=== PATIENT | female | born 1945 | race Caucasian/White ===

== ENCOUNTER 2021-09-08 17:01 | Inpatient (IN) | payer MEDICARE ==
[~2021-09-08] VITALS: Ht 172.7 cm; Wt 90.7 kg
[~2021-09-08 17:01] MED LIST: ALDACTONE25 M1 PO; ATENOLOL50 MG PO; ATIVAN0.5 MG PO; B121000 MCG/1 IM; CIPRO500 MG PO; FLEXERIL5 MG PO; KLOR-CON M2020 MEQ PO; LISINOPRIL40 MG PO; NORVASC10 MG PO; PRAVACHOL40 MG PO; PRILOSEC40 MG PO; UNKNOWN HTN MED
[2021-09-08 17:09] VITALS: BP 189/96
[2021-09-08 18:29] LABS: BASO % 0.1 % (0.0-1.0); EOS % 0.1 % (1.0-4.0); HEMATOCRIT 36.4 % (37.0-47.0); LYMPH # 0.9 10*3/uL (1.3-4.4); LYMPH % 8.6 % (27.0-41.0); MEAN CELL VOLUME 85.8 fl (81.0-99.0); MEAN CORPUSCULAR HGB 28.8 pg (27.0-31.0); MEAN CORPUSCULAR HGB CONC 33.5 g/dl (33.0-37.0); MEAN PLATELET VOLUME 10.4 fl (9.6-12.3); MONO # 0.4 10*3/uL (0.1-1.0); MONO % 4.1 % (3.0-9.0); NEUT % 86.5 % (47.0-73.0); PLATELET COUNT AUTOMATED 221 10*3/uL (130-400); RED BLOOD COUNT 4.24 10*6/uL (4.10-5.10); WHITE BLOOD COUNT 10.4 10*3/uL (4.8-10.8)
[2021-09-08 18:43] LABS: ACT PARTIAL THROMBO TIME 25.4 SECONDS (20.0-32.1); ALBUMIN 2.4 gm/dl (3.1-4.5); ALKALINE PHOSPHATASE 130 U/L (45-117); BUN 10 mg/dl (7-24); CHLORIDE 105 mmol/L (98-107); CREATININE 0.75 mg/dL (0.55-1.02); INTERNATIONAL NORM RATIO 1.1 (2.0-3.5); LIPASE 176 U/L (73-393); SGOT/AST 53 IU/L (3-35); SGPT/ALT 34 U/L (12-78); SODIUM 139 mmol/L (136-145); TOTAL PROTEIN 6.7 gm/dL (6.4-8.2)
[2021-09-08 18:46] LABS: TROPONIN I < 0.015 ng/ml (<0.045)
[2021-09-08 19:51] LABS: BILIRUBIN Negative (Negative); BLOOD Negative (Negative); CLARITY Clear (Clear); COLOR Yellow (Yellow); GLUCOSE Negative (Negative); KETONE Negative (Negative); LEUKO ESTERASE Negative (Negative); NITRITE Negative (Negative); PH 6.5 (4.5-8.0); SPECIFIC GRAVITY 1.015 (1.001-1.030); UROBILINOGEN 0.2 E.U./dl (0.0-1.0)
[2021-09-08 20:10] LABS: BACTERIA 1+; EPITHELIAL CELLS 0-2; WBC 0-2 wbc/hpf (0-5); YEAST 1+
[2021-09-08 21:30] VITALS: BP 141/71
[2021-09-08 22:10] VITALS: BP 151/86
[2021-09-08] MEDS ORDERED: MGO400 MG PO (22:57)
[2021-09-08] MEDS ORDERED: DECADRON6 M1 PO (22:58)
[2021-09-08] MEDS ORDERED: KEFLEX 500 MG E2 CAP PO (22:59)
[2021-09-08] MEDS ORDERED: POTASSIUM CHLO20 ME3 PO (23:00)
[2021-09-08] MEDS ORDERED: LORAZEPAM0.5 MG PO (23:01)
[2021-09-08] MEDS ORDERED: METFORMIN HYDR500 MG PO (23:02)
[2021-09-08] MEDS ORDERED: TENORMIN50 MG PO (23:02)
[2021-09-08] MEDS ORDERED: Ondansetron4 MG PO (23:03)
[2021-09-08] MEDS ORDERED: PRAVASTATIN SOD40 MG PO (23:04)
[2021-09-08] MEDS ORDERED: ELIQUIS5 M1 PO (23:04)
[2021-09-09 06:23] LABS: BASO % 0.1 % (0.0-1.0); HEMATOCRIT 34.5 % (37.0-47.0); LYMPH # 0.8 10*3/uL (1.3-4.4); LYMPH % 10.5 % (27.0-41.0); MEAN CORPUSCULAR HGB 29.2 pg (27.0-31.0); MEAN CORPUSCULAR HGB CONC 33.9 g/dl (33.0-37.0); MEAN PLATELET VOLUME 10.6 fl (9.6-12.3); MONO # 0.4 10*3/uL (0.1-1.0); MONO % 5.5 % (3.0-9.0); NEUT # 6.7 10*3/uL (2.3-7.9); NEUT % 82.9 % (47.0-73.0); PLATELET COUNT AUTOMATED 213 10*3/uL (130-400); RED BLOOD COUNT 4.01 10*6/uL (4.10-5.10); RED CELL DISTRI WIDTH 12.9 % (0-14.5)
[2021-09-09 06:46] LABS: CHLORIDE 106 mmol/L (98-107); POTASSIUM 3.5 mmol/L (3.5-5.1); SODIUM 140 mmol/L (136-145)
[2021-09-09 06:54] LABS: ALBUMIN 2.3 gm/dl (3.1-4.5); ALKALINE PHOSPHATASE 135 U/L (45-117); BUN 9 mg/dl (7-24); CREATININE 0.77 mg/dL (0.55-1.02); SGOT/AST 45 IU/L (3-35); SGPT/ALT 30 U/L (12-78); TOTAL PROTEIN 6.6 gm/dL (6.4-8.2)
[2021-09-09 08:00] VITALS: BP 130/50
[2021-09-09 12:00] VITALS: BP 133/52
[2021-09-09 16:00] VITALS: BP 157/80
[2021-09-10] VITALS: BP 140/35
[2021-09-10 03:49] LABS: BILIRUBIN Negative (Negative); BLOOD Negative (Negative); CLARITY Clear (Clear); COLOR Yellow (Yellow); GLUCOSE Negative (Negative); KETONE Negative (Negative); LEUKO ESTERASE Negative (Negative); NITRITE Negative (Negative); SPECIFIC GRAVITY <= 1.005 (1.001-1.030); UROBILINOGEN 0.2 E.U./dl (0.0-1.0)
[2021-09-10 04:05] LABS: EPITHELIAL CELLS 0-2; WBC 0-2 wbc/hpf (0-5)
[2021-09-10 04:06] LABS: BACTERIA TRACE
[2021-09-10 06:46] LABS: BASO % 0.1 % (0.0-1.0); EOS % 0.1 % (1.0-4.0); HEMATOCRIT 37.1 % (37.0-47.0); LYMPH # 1.3 10*3/uL (1.3-4.4); LYMPH % 12.2 % (27.0-41.0); MEAN CELL VOLUME 86.9 fl (81.0-99.0); MEAN CORPUSCULAR HGB CONC 33.4 g/dl (33.0-37.0); MEAN PLATELET VOLUME 11.7 fl (9.6-12.3); MONO # 0.9 10*3/uL (0.1-1.0); MONO % 8.3 % (3.0-9.0); NEUT # 8.5 10*3/uL (2.3-7.9); NEUT % 77.3 % (47.0-73.0); PLATELET COUNT AUTOMATED 226 10*3/uL (130-400); RED BLOOD COUNT 4.27 10*6/uL (4.10-5.10); RED CELL DISTRI WIDTH 13.1 % (0-14.5)
[2021-09-10 06:55] LABS: BUN 11 mg/dl (7-24); CHLORIDE 104 mmol/L (98-107); CREATININE 0.74 mg/dL (0.55-1.02); SODIUM 138 mmol/L (136-145)
[2021-09-10 06:56] LABS: POTASSIUM 3.3 mmol/L (3.5-5.1)
[2021-09-10 08:00] VITALS: BP 156/80
[2021-09-10 12:00] VITALS: BP 158/50
[2021-09-10 16:00] VITALS: BP 134/94
[2021-09-10 20:00] VITALS: BP 178/90
[2021-09-11] VITALS: BP 189/80
[2021-09-11 03:39] VITALS: BP 148/49
[2021-09-11 07:31] LABS: BUN 17 mg/dl (7-24); CHLORIDE 99 mmol/L (98-107); CREATININE 0.92 mg/dL (0.55-1.02); POTASSIUM 3.6 mmol/L (3.5-5.1); SODIUM 140 mmol/L (136-145)
[2021-09-11 08:00] VITALS: BP 158/90
[2021-09-11 11:58] VITALS: BP 153/79
[2021-09-11] MEDS ORDERED: IMODIUM A-D2 M2 PO (12:37)
[2021-09-11] MEDS ORDERED: ZOFRAN4 MG PO (12:37)
[2021-09-11] MEDS ORDERED: DECADRON6 M1 PO (12:37)
== END 2021-09-11 14:00 | disposition home or self-care (01) | DRG 177 ==
LOC: ED 17:01 → 4E 21:10 → EDHOLD 21:10 → 4E 21:42
PROVIDERS: Family Medicine; Hospitalist; Internal Medicine; Physician Assistant; ADMIT Student in an Organized Health Care Education/Training Program; ATTEND Student in an Organized Health Care Education/Training Program
DX: U07.1 COVID-19 (principal); E43 Unspecified severe protein-calorie malnutrition; J12.82 Pneumonia due to coronavirus disease 2019; E04.1 Nontoxic single thyroid nodule; E87.6 Hypokalemia; E86.0 Dehydration; R74.01 Elevation of levels of liver transaminase levels; E11.65 Type 2 diabetes mellitus with hyperglycemia; E78.5 Hyperlipidemia, unspecified; I10 Essential (primary) hypertension; Z86.16 Personal history of COVID-19; Z68.30 Body mass index [BMI] 30.0-30.9, adult; Z88.8 Allergy status to other drugs, medicaments and biological substances; Z90.710 Acquired absence of both cervix and uterus